=== PATIENT | male | born 1975 | race Caucasian/White ===

== ENCOUNTER 2019-12-24 14:51 | Outpatient (CLI) | payer OTHER, SELFPAY ==
--- NOTE | ~2019-12-24 | XR_ITS ---
EXAMINATION: XR abdomen/kub 1V DATE: 12/24/2019 15:15 INDICATION: Left kidney stone. TECHNIQUE: A supine view of the abdomen on 2 radiographs was obtained. COMPARISON: CT abdomen and pelvis 12/24/2019 FINDINGS: There is no urolithiasis. There are no dilated loops of bowel. There are phleboliths in the pelvis. IMPRESSION: 1. No urolithiasis. Reviewed, dictated and finalized at location A. TY PROFESSIONAL IMPRESSION: 1. No urolithiasis.
--- NOTE | ~2019-12-24 | CT_ITS ---
EXAMINATION: CT abdomen pelvis wo con DATE: 12/24/2019 15:11 INDICATION: Left kidney stone. TECHNIQUE: Computed tomography (CT) of the abdomen and pelvis was performed without intravenous contr ast. Automated exposure control and iterative reconstruction technique were employed. The dose-length product was 192.60 mGy-cm. COMPARISON: CT abdomen and pelvis 05/25/2019 FINDINGS: The visualized portions of the lung bases are clear without pneumonia or pleural effusion. The heart size is normal. No pericardial effusion. The liver, gallbladder, spleen, pancreas, adrenal glands, and kidneys are normal. There is no urolithiasis. There are no dilated loops of bowel. The ap pendix is normal. There are no pathologically enlarged lymph nodes. There is no free intraperitoneal fluid. There is severe lower lumbar spondylosis. IMPRESSION: 1. No urolithiasis. Reviewed, dictated and finalized at location A. OFF BLOCKER IMPRESSION: 1. No urolithiasis.
== END 2019-12-24 14:52 | disposition home or self-care (01) ==
LOC: ANHIMG 14:55
PROVIDERS: PCP Family Medicine; Visit Provider Nurse Practitioner Adult Health
DX: N20.0 Calculus of kidney (principal)
CPT/HCPCS: 74018; 74176

== ENCOUNTER 2021-05-12 09:40 | Outpatient (CLI) | payer OTHER, SELFPAY ==
[2021-05-12 10:21] LABS: Alanine Aminotransferase 81 U/L (4-50); Albumin Level 4.6 g/dL (3.5-5.1); Alkaline Phosphatase 83 U/L (38-126); Anion Gap 8 mmol/L (8-16); Aspartate Amino Transferase 52 U/L (17-59); Bilirubin,Total 0.9 mg/dL (0.2-1.3); Blood Urea Nitrogen 17 mg/dL (9-20); Calcium 9.1 mg/dL (8.4-10.2); Carbon Dioxide 30 mmol/L (22-30); Chloride 103 mmol/L (98-107); Cholesterol 302 mg/dL (0-200); Estimated Glomerular Filt Rate > 60; Glucose 120 mg/dL (75-110); HDL Direct 64 mg/dL; Potassium 4.5 mmol/L (3.4-5.0); Sodium 141 mmol/L (137-145); Triglycerides 64 mg/dL (<150)
[2021-05-12 10:32] LABS: LDL Cholesterol Direct 188 mg/dL
== END 2021-05-12 09:41 | disposition home or self-care (01) ==
PROVIDERS: PCP Family Medicine; Visit Provider Physician Assistant
DX: Z00.00 Encounter for general adult medical examination without abnormal findings (principal); K21.9 Gastro-esophageal reflux disease without esophagitis; R19.7 Diarrhea, unspecified
CPT/HCPCS: 36415; 80053; 80061

== ENCOUNTER → 2021-05-17 14:13 | Outpatient (CLI) | payer OTHER, SELFPAY ==
--- NOTE | ~2021-05-17 | XR_ITS ---
EXAMINATION: XR shoulder RT min 2V DATE: 05/17/2021 14:52 INDICATION: Right shoulder pain. TECHNIQUE: 4 views of right shoulder were obtained. COMPARISON: None. FINDINGS: Bone alignment is normal. No fracture. There is mild osteoarthritis of glenohumeral joint a nd acromioclavicular joint. IMPRESSION: 1. Polyarticular osteoarthritis. Reviewed, dictated and finalized at location A.
== END ==
PROVIDERS: PCP Physician Assistant; Visit Provider Physician Assistant
DX: M25.511 Pain in right shoulder (principal); M19.011 Primary osteoarthritis, right shoulder
CPT/HCPCS: 73030

== ENCOUNTER 2021-09-25 15:30 | Outpatient (CLI) | payer OTHER, SELFPAY ==
[2021-09-25 16:13] LABS: Alanine Aminotransferase 26 U/L (4-50); Albumin Level 4.4 g/dL (3.5-5.1); Alkaline Phosphatase 53 U/L (38-126); Anion Gap 4 mmol/L (8-16); Aspartate Amino Transferase 33 U/L (17-59); Bilirubin,Total 0.8 mg/dL (0.2-1.3); Blood Urea Nitrogen 8 mg/dL (9-20); Calcium 9.8 mg/dL (8.4-10.2); Carbon Dioxide 34 mmol/L (22-30); Chloride 103 mmol/L (98-107); Cholesterol 162 mg/dL (0-200); Estimated Glomerular Filt Rate > 60; Glucose 98 mg/dL (65-110); HDL Direct 57 mg/dL; Potassium 5.3 mmol/L (3.4-5.0); Sodium 141 mmol/L (137-145); Triglycerides 57 mg/dL (<150)
[2021-09-25 16:23] LABS: LDL Cholesterol Direct 89 mg/dL
[2021-09-26 12:52] LABS: Hemoglobin A1C 5.7 % (<5.7)
== END 2021-09-25 15:31 | disposition home or self-care (01) ==
LOC: ANHLAB 15:32
PROVIDERS: PCP Family Medicine; Visit Provider Family Medicine
DX: R73.01 Impaired fasting glucose (principal); E78.5 Hyperlipidemia, unspecified
CPT/HCPCS: 36415; 80053; 80061; 83036

== ENCOUNTER 2023-02-06 09:00 | Outpatient (NON) | payer OTHER, SELFPAY | END 2023-02-06 09:01 | disposition home or self-care (01) | LOC: ANHLAB 02-07 08:01 | PROVIDERS: PCP Family Medicine; Visit Provider Internal Medicine Gastroenterology | DX: D12.0 Benign neoplasm of cecum (principal) | CPT/HCPCS: 88305 ==

== ENCOUNTER 2023-02-06 11:25 | Day surgery (SDC) | payer OTHER, SELFPAY ==
[2022-12-28 11:42] VITALS: BMI 25.2
[2023-01-24 12:33] VITALS: BMI 23.6
--- NOTE | 2023-02-05 15:57 | PM.HPGS ---
History of Present Illness History of Present Illness Consent: Risks, benefits, and alternatives have been discussed and questions answered. Patient agrees to proceed with procedure. Chief complaint: Neoplasm Screening Narrative: Adal Galarza is a 47 year old male who was referred for colon cancer screening. Review of Systems Review of Systems: All systems reviewed & are unremarkable except as noted in HPI and below PMFSH Past Medical History Medical History Anxiety disorder, unspecified Atrioventricular block, Mobitz type 1, Wenckebach Chronic sinusitis GERD (gastroesophageal reflux disease) Hypertension Insomnia, unspecified Tachycardia Urinary hesitancy Family History Family History Mother Hypertension Social History Social History Years smoked: 10 Smoking status: Never smoker Tobacco type: cigarettes Smoking end date: 11/18/03 Alcohol intake: never Substance use: never Substance use type: marijuana Living arrangements: with family Occupation/Education: occupation Gender identity (if verbalized by the patient): Male Spiritual care concerns: No Meds Home Medications and Allergies Home Medications Medication Instructions Recorded Confirmed Type rosuvastatin 5 mg tablet (Crestor) 5 mg PO QPM #90 tabs 05/18/22 02/06/23 Rx duloxetine 30 mg capsule,delayed 30 mg PO DAILY #90 caps 06/19/22 02/06/23 Rx release amlodipine 5 mg tablet 5 mg PO DAILY #90 tabs 12/24/22 02/06/23 Rx lorazepam 0.5 mg tablet (Ativan) 0.5 mg PO DAILY PRN anxiety #30 12/31/22 02/06/23 Rx tabs Allergies Allergy/AdvReac Type Severity Reaction Status Date / Time No Known Allergies Allergy Verified 02/06/23 11:47 Exam Const: General: alert Orientation/consciousness: patient oriented x3 Resp: Auscultation: clear to auscultation bilaterally Cardio: Rhythm: regular rhythm GI: GI Palp: Yes Soft to palpation and No Tenderness to palpation present (GI) Neuro: General: patient oriented x3 Assessment and Plan Assessment and plan (1) Colon cancer screening: Code(s): Z12.11 - Encounter for screening for malignant neoplasm of colon Status: Acute Assessment and Plan: Colonoscopy with possible biopsy or polypectomy or cautery or injection of substances.
--- NOTE | 2023-02-06 07:16 | P.PNAN_ITS ---
Anes - Initial Pre Proc Eval Procedure: Operation Date: 02/06/23 13:00 Proposed Procedures p Screening Colonoscopy - Clovis Fuchs MD Date/Time: 02/06/23 07:16 Surgeon: Clovis Fuchs MD Pre Op Diagnosis: Neoplasm Screening Patient Data Age: 47 Gender: M Height: 1.8 m Weight: 77 kg Allergies Allergy/AdvReac Type Severity Reaction Status Date / Time No Known Allergies Allergy Verified 02/06/23 11:47 Home Medications Medication Instructions Recorded Confirmed Type rosuvastatin 5 mg tablet (Crestor) 5 mg PO QPM #90 tabs 05/18/22 02/06/23 Rx duloxetine 30 mg capsule,delayed 30 mg PO DAILY #90 caps 06/19/22 02/06/23 Rx release amlodipine 5 mg tablet 5 mg PO DAILY #90 tabs 12/24/22 02/06/23 Rx lorazepam 0.5 mg tablet (Ativan) 0.5 mg PO DAILY PRN anxiety #30 12/31/22 02/06/23 Rx tabs Patient hx anesthesia problems: none Family hx anesthesia problems: none Results Review: All pre-operative results and documents have been reviewed as part of the pre- operative evaluation. [facility] Past Medical History Medical History Anxiety disorder, unspecified Atrioventricular block, Mobitz type 1, Wenckebach Chronic sinusitis GERD (gastroesophageal reflux disease) Hypertension Insomnia, unspecified Tachycardia Urinary hesitancy Family History Family History Mother Hypertension Social History Social History Years smoked: 10 Smoking status: Never smoker Tobacco type: cigarettes Smoking end date: 11/18/03 Alcohol intake: never Substance use: never Substance use type: marijuana Living arrangements: with family Occupation/Education: occupation Gender identity (if verbalized by the patient): Male Spiritual care concerns: No Anes - Eval Final PreProcedure Day of Procedure 02/06/23 07:16 Patient weight: normal Heart: regular rate and rhythm Lungs: clear to auscultation and normal air movement Airway: Mallampati scale class II Neurological: alert and oriented Last oral intake: >/= 8 hours ASA classification: III Emergent: no Anesthetic plan: proceed Anesthesia type and monitoring: general GIVS and standard monitoring Results Review: All pre-operative results and documents have been reviewed as part of the pre- operative evaluation. Informed Consent: The patient's anesthetic plan and its attendant risks and benefits were discussed with the patient/family/POA. Questions were solicited and answers provided to the satisfaction of the patient/family/POA.
[2023-02-06 11:49] VITALS: BP 161/105; PULSE 83; RESP 20; TEMP 36.8; O2SAT 100
[2023-02-06] MEDS: LACTATED RINGERS 1,000 ML 150 ML IV CONT (11:56)
[2023-02-06 13:32] VITALS: BP 115/72; PULSE 72; RESP 15; O2SAT 99
[2023-02-06 13:42] VITALS: BP 133/84; PULSE 82; RESP 15; O2SAT 99
[2023-02-06 14:03] VITALS: BP 141/93; PULSE 67; RESP 15; O2SAT 100
--- NOTE | 2023-02-06 15:01 | WPDANESPN ---
Anes - Prog Note Post-Op Date/Time: 02/06/23 15:01 Cardiovascular status: normal Respiratory status: normal Airway patency: baseline Mental status: baseline Post-Op hydration status: normal Vital Signs: Last Vital Signs Temp 36.8 C 02/06/23 11:49 Pulse 67 02/06/23 14:03 Resp 15 02/06/23 14:03 BP 141/93 H 02/06/23 14:03 Pulse Ox 100 02/06/23 14:03 O2 Del Method Room Air 02/06/23 14:03 Pain Score (VAS): 0 I/O: Intake & Output 02/05/23 02/06/23 02/06/23 23:59 07:59 15:59 Intake Total 600 Balance 600 Post-procedural complaints: none Patient Feedback: Patient satisfied with anesthetic care. Other Findings: Patient vital signs back to baseline. Patient denies nausea and vomiting. Patient's pain under control. Patient OK for discharge.
== END 2023-02-06 14:22 | disposition home or self-care (01) ==
PROVIDERS: PCP Family Medicine; Visit Provider Internal Medicine Gastroenterology
PROC: 0DJD8ZZ Inspection of Lower Intestinal Tract, Via Natural or Artificial Opening Endoscopic (ICD-10-PCS; CPT 45378; principal; 2023-02-06 13:00)
DX: Z12.11 Encounter for screening for malignant neoplasm of colon (principal)
CPT/HCPCS: 45380

== ENCOUNTER 2023-04-24 00:45 | Day surgery (SDC) | payer OTHER, SELFPAY ==
[2023-04-22 09:12] VITALS: BMI 23.7
--- NOTE | 2023-04-22 09:17 | PC.NURSE ---
Report to the Outpatient Waiting Room, entrance under the green pavilion located off [facility], at time 0600 on date 04/24/23. Planned Procedure Time: 0730. Time changes happen often and if your time is changed the preop area will call you the afternoon before. - You and your visitor will be asked to self-screen and do not enter if you have any COVID symptoms. - A mask is optional within the hospital at this time. Patients may have clear liquids (water, carbonated beverages, clear teas, apple juice) until 3 hours prior to surgery with a maximum of 20 ounces. - No food from midnight until time of surgery Take the following medications with a SIP of water the morning of surgery: AMLODIPINE, ATIVAN IF NEEDED DO NOT STOP ANY OF YOUR OTHER PRESCRIPTION MEDICATIONS PRIOR TO SURGERY EXCEPT THE FOLLOWING Medications to discontinue per physician: N/A Date to take last dose: N/A Please no make-up, nail cameroonian, hairspray, perfume, deodorant, or body powder the day of surgery. No jewelry (including any body piercings) or valuables the day of surgery, leave them at home. Please take a shower or bath the night before, or the morning of, surgery with an antibacterial soap. Wear comfortable, loose fitting clothing. - Jewelry must be removed prior to entering the operating room. Rings and piercings that are not removed may be cut off. - The hospital will not accept responsibility for valuables. - Please leave all valuables, including medications, at home the day of surgery. If you are going home after surgery, a licensed laundry route driver must drive you home. - NO public transportation without another adult if you receive anesthesia. - We recommend that an adult stay with you for 24 hours following discharge. - We also recommend that you do not drive, make important decision, drink alcoholic beverages, or take any drugs that were not prescribed by your health care provider for at least 24 hours after your discharge time. Follow any additional instructions given to you from your surgeon. If you or anyone in your household have experienced Covid symptoms in the past week, please notify your surgeon or the nurse liaison at the phone number below for possible testing. Telephone instructions given to PT - HAFSA CASTELLANOS and asked if any additional questions and then verbalized understanding. Patient advised to call surgeon office or pre surgery nurse liaison [phone] if any additional questions.
[2023-04-24 06:03] VITALS: BMI 24.3
[2023-04-24 06:10] VITALS: BP 164/97; PULSE 77; RESP 16; TEMP 36.4; O2SAT 100
[2023-04-24] MEDS: LACTATED RINGERS 1,000 ML 30 ML IV CONT ×2 (06:10→09:12)
--- NOTE | 2023-04-24 06:31 | WPDANESEPPF ---
Anes - Initial Pre Proc Eval Procedure: Operation Date: 04/24/23 07:30 Proposed Procedures p Left Partial Palmar Fasciectomy - Yovani Wong MD Date/Time: 04/24/23 06:31 Surgeon: Yovani Wong MD Pre Op Diagnosis: duppuytren's contracture left palm Patient Data Age: 47 Gender: M Height: 1.8 m Weight: 77.15 kg Allergies Allergy/AdvReac Type Severity Reaction Status Date / Time No Known Allergies Allergy Verified 04/22/23 09:11 Home Medications Medication Instructions Recorded Confirmed Type rosuvastatin 5 mg tablet (Crestor) 5 mg PO QPM #90 tabs 05/18/22 04/22/23 Rx duloxetine 30 mg capsule,delayed 30 mg PO DAILY #90 caps 03/18/23 04/22/23 Rx release amlodipine 5 mg tablet 5 mg PO DAILY #90 tabs 03/20/23 04/22/23 Rx lorazepam 0.5 mg tablet (Ativan) 0.5 mg PO DAILY PRN anxiety #30 04/22/23 04/22/23 Rx tabs Patient hx anesthesia problems: none Family hx anesthesia problems: none Results Review: All pre-operative results and documents have been reviewed as part of the pre-operative evaluation. [facility] Past Medical History Medical History Anxiety disorder, unspecified Atrioventricular block, Mobitz type 1, Wenckebach Chronic sinusitis GERD (gastroesophageal reflux disease) Hypertension Insomnia, unspecified Tachycardia Urinary hesitancy Surgical History Surgical History (Updated 04/24/23 @ 06:31 by Sanya Barakat MD) H/O colonoscopy Family History Family History Mother Hypertension Social History Social History Smoking packs per day: 1 Smoking cigarettes per day: 20.0 Years smoked: 10 Smoking pack-years: 10.00 Smoking status: Former smoker Tobacco type: cigarettes Smoking end date: 11/18/09 Alcohol intake: never Substance use: current Substance use type: marijuana Living arrangements: with family Occupation/Education: occupation Gender identity (if verbalized by the patient): Male Spiritual care concerns: No Anes - Eval Final PreProcedure Day of Procedure 04/24/23 06:31 Patient weight: normal Heart: regular rate and rhythm Lungs: clear to auscultation Neurological: alert and oriented Last oral intake: >/= 8 hours ASA classification: III Emergent: no Anesthetic plan: proceed Anesthesia type and monitoring: general GIVS and standard monitoring Results Review: All pre-operative results and documents have been reviewed as part of the pre-operative evaluation. Informed Consent: The patient's anesthetic plan and its attendant risks and benefits were discussed with the patient/family/POA. Questions were solicited and answers provided to the satisfaction of the patient/family/POA.
--- NOTE | 2023-04-24 07:09 | WPDHPUPDATE1 ---
History and Physical Update Update Date/Time: 04/24/23 07:09 History and Physical has been reviewed, including an updated exam of the patient. There are NO changes in the patient's condition. Risks, benefits, and alternatives have been discussed and questions answered. Patient agrees to proceed with procedure.
[2023-04-24] MEDS: ceFAZolin 2 GM/D5W 50 ML 2 GM/50 ML BAG IVPB (07:44)
[2023-04-24] MEDS: LIDO 1%/EPINEPHRINE 1:100,000 50 ML VIAL INFILTRATE (07:46)
--- NOTE | 2023-04-24 08:46 | SUR.OPER ---
right arm IV infiltration site decreased in size radial pulse +3. Skin temp normal.
[2023-04-24 09:15] VITALS: BP 135/93; PULSE 67; RESP 14; O2SAT 96
--- NOTE | 2023-04-24 09:42 | W.PM.PROC2 ---
Procedure Note - Detailed Date of Procedure 04/24/23 Pre-op Diagnosis duppuytren's contracture left palm Post-op Diagnosis Other (Dupuytren's contracture of left hand.) Procedure Performed Left partial palmar fasciectomy. Surgeon Yovani Wong MD [facility] Caregiver [facility] Anesthesia General Description of Procedure The left palm was marked with patient's consent in the holding area. He was then taken to the operating room was placed supine on the operating table. He was given IV sedation or general anesthesia. The left upper extremity was prepped and draped in usual fashion. The sites were marked for incisions and some local 1% lidocaine with epinephrine was injected. The extremity was exsanguinated and the tourniquet inflated to 250 mmHg. A a small longitudinal incision was made in the palm over the 3rd ray to lyse the cord leading to the middle finger. The diagonal incision was made across the distal ulnar palm and was extended diagonally to the midline of the 5th finger and then out to the pad from that point. Skin flaps were elevated in each area sufficient to allow access to the cord material and visualize neurovascular bundles. The cord material was removed piecemeal. There was a significant pretendinous lateral cord, lateral bands and spiral cord on the small finger ulnar aspect. These were all excised. The contracted abductor digiti minimi tendon was also lysed. The opposite side of the same finger was dissected very minimally. At this point the fingers could be laid out straight. A Z-plasty was designed at the proximal interphalangeal joint and at the metacarpophalangeal joint on the small finger and the wound was closed with 4-0 nylon suture. The tourniquet was released and a bulky bandage applied. No additional local was placed. The patient had been given 2 g of Ancef preop
[2023-04-24 09:45] VITALS: BP 134/94; PULSE 63; RESP 16
== END 2023-04-24 10:20 | disposition home or self-care (01) ==
PROVIDERS: PCP Family Medicine; Visit Provider Plastic Surgery
PROC: (CPT 26045; principal; 2023-04-24 07:30)
DX: M72.0 Palmar fascial fibromatosis [Dupuytren] (principal); I44.0 Atrioventricular block, first degree; I10 Essential (primary) hypertension; F41.9 Anxiety disorder, unspecified; Z87.891 Personal history of nicotine dependence; F12.90 Cannabis use, unspecified, uncomplicated
CPT/HCPCS: 26123; A9270; J0690; J2250; J2704; J3010; J7120

== ENCOUNTER → 2023-08-05 13:13 | Outpatient (CLI) | payer OTHER, SELFPAY ==
--- NOTE | ~2023-08-05 | XR_ITS ---
EXAMINATION: XR ribs RT 2V w CXR 2V INDICATION: Pleurodynia TECHNIQUE: PA and lateral views of the chest and 3 views of the right ribs were obtained. COMPARISON: 05/25/2019 FINDINGS: The lungs are free of acute opacities. No pleural effusion or pneumothorax. The cardiomedia stinal silhouette is normal. No displaced rib fracture is identified. There is an acute, traumatic, c losed, minimally displaced anterolateral fracture of the right ninth rib. IMPRESSION: 1. Acute, minimally displaced anterolateral right ninth rib fracture. Reviewed, dictated and finalized at location B.
== END ==
PROVIDERS: PCP Family Medicine; Visit Provider Physician Assistant
DX: R07.81 Pleurodynia (principal); S22.31XA Fracture of one rib, right side, initial encounter for closed fracture
CPT/HCPCS: 71046; 71100